=== PATIENT | male | born 1965 | race Caucasian/White ===

== ENCOUNTER → 2016-11-10 | Day surgery (SDC) | payer OTHER ==
[~2016-11-10] MED LIST: ADVIL200 M2 PO; CONGESTION INH; OMEPRAZOLE40 M1 PO
--- NOTE | ~2016-11-10 | OR ---
Unit #: [id number] #: [id number] Patient: BROWN CHAMPAGNE [id number] [address] [place], [place] [address] [id number] O MR#: [id number] NAME: BROWN CHAMPAGNE ROOM: Date of Procedure: 11/10/2016 Admission Date: 11/10/2016 Surgeon: Hernan Serna M.D. : 1965 Attending Physician: Hernan Serna M.D. OPERATIVE REPORT PREOPERATIVE DIAGNOSES The patient presented with history of dyspepsia, epigastric pain, bloating and early satiety. He has come for elective upper endoscopy. PROCEDURES PERFORMED Upper gastrointestinal endoscopy and biopsy. POSTOPERATIVE DIAGNOSES 1. 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 There were tongues of columnar mucosa ascending above the gastroesophageal junction and these were biopsied. 2. The patient had what seemed like an extrinsic impression in the gastric body on the greater curve posteriorly in the prepyloric antral area. The mucosa overlying this area was normal. 3. Rest of the examination up to third part of duodenum was normal. A biopsy was obtained from the antrum for CLOtest. In addition, biopsy was obtained from the distal esophageal mucosa from supposedly Low's segment. RECOMMENDATIONS The patient will be started on pantoprazole 40 mg p.o. daily. He will be followed up in the office in 2 to 3 months' time. Whether he needs any additional tests such as endoscopic ultrasound of the stomach will be decided at that time. SEDATION USED MAC. DESCRIPTION OF PROCEDURE Following detailed explanation of the potential risks and complications of an upper endoscopy, namely perforation, bleeding, and complication related to sedation, the patient was brought to GI lab and laid in the left lateral decubitus position. Lubricated tip of the Olympus video upper endoscope was passed through bite block into the proximal esophagus under direct vision. The entire esophageal mucosa was examined. The patient was noted to have tiny tongues of columnar mucosa ascending above the gastroesophageal junction and the distal esophagus. The scope was then advanced into the gastric cavity and the latter was insufflated. Mucosa of the fundus, body, and antrum was examined. Mucosa throughout appeared normal. The patient, however, seemed to have an extrinsic impression in the prepyloric area on the greater curve. Pylorus was intubated with visualization of normal duodenal bulb and second and third part of the Unit #: [id number] #: [id number] Patient: BROWN CHAMPAGNE duodenum. Upon withdrawal and retroflexion, incisura, cardia, and greater curve examined and biopsy obtained for CLOtest. The scope was withdrawn from the distal esophagus. Multiple biopsies were obtained from the squamocolumnar junction in the distal esophagus and sent for histology. Entire esophageal mucosa was examined all the way up to pharynx. No additional findings noted. The patient tolerated the procedure without any postprocedure complications. Dictated by... Farshad Jaramillo/alban TD: 11/10/2016 09:27 JOB #: [id number] CC: Juan Manuel Gross M.D. OPERATIVE REPORT Page 1 of 1 X Hernan Serna MD X PROCEDURE OPERATIVE NOTE
== END | disposition home or self-care (01) ==
LOC: COPS 06:51
DX: K22.70 Barrett's esophagus without dysplasia (principal); K21.0 Gastro-esophageal reflux disease with esophagitis; K21.9 Gastro-esophageal reflux disease without esophagitis; Z90.89 Acquired absence of other organs
CPT/HCPCS: 87077; 88305; J2250